=== PATIENT | male | born 1975 | race Caucasian/White ===

== ENCOUNTER 2021-06-20 17:31 | Emergency (ER) | payer BC ==
[~2021-06-20] VITALS: Ht 177.8 cm; Wt 100.0 kg
[2021-06-20 18:10] VITALS: TEMP 98.8
[2021-06-20] MEDS ORDERED: CRUTCHES MC (19:09)
[2021-06-20] MEDS ORDERED: CEPHALEXIN500 M1 PO (19:09)
[2021-06-20] MEDS ORDERED: BACTRIM DS 8001 TAB PO (19:09)
[2021-06-20 19:39] VITALS: BP 137/79; PULSE 72
== END 2021-06-20 19:39 | disposition home or self-care (01) ==
LOC: COL.ER 17:31
DX: S82.391A Other fracture of lower end of right tibia, initial encounter for closed fracture (principal); Z86.14 Personal history of Methicillin resistant Staphylococcus aureus infection; V86.56XA Driver of dirt bike or motor/cross bike injured in nontraffic accident, initial encounter; Y93.55 Activity, bike riding